=== PATIENT | male | born 1950 | race African-American/Black ===

== ENCOUNTER → 2017-08-27 | Outpatient (CLI) | payer MEDICARE, OTHER ==
--- NOTE | 2017-08-27 18:05 | PE ---
EXAMINATION TYPE: PET CT fusion skull to thigh DATE OF EXAM: 08/27/2017 CLINICAL HISTORY: Lung cancer initial staging study after biopsy August 23. TECHNIQUE: Following the intravenous administration of 15.25 mCi of F-18 FDG, whole body images are performed from the skull base to the midthigh. Images are reviewed on the computer in the coronal, axial, and sagittal planes. Reconstructed rotating images are created on independent workstation and reviewed on the computer. A non-contrast CT is performed in conjunction with the PET scan. [facility] ed PET/CT neck imaging is performed. COMPARISON: CT chest August 23, 2017. Initial study NDINGS: SKULL BASE AND NECK: No suspicious hypermetabolic uptake is seen. CHES MEDIASTINUM, AND HILAR GION: There is redemonstration of posterior left upper lobe mass abutt ing mediastinum and pleura with suspected invasion into chest wall posterior aspect left upper lobe o n axial image 75 measuring 4.9 x 4.8 cm. Craniocaudal dimension is roughly 6.0 cm. There is encroachm ent on the left-sided neural foramina at this level. Max SUV is 11.04. There is nonspecific but suspicious slightly hypermetabolic 1.0 x 1.0 cm left supraclavicular lymph n ode axial image 60 with max SUV of 2.07. There is background of advanced emphysematous change particularly in the upper lobes. Spiculated scar like opacity right upper lobe measuring 1.4 x 0.8 cm axial image 93 does not show suspicious hypermet abolic uptake. There are large calcified right hilar lymph nodes. There is linear and nodular scarrin g in the left lung base without hypermetabolic uptake. ABDOMEN AND LVIS: No suspicious hypermetabolic uptake is identified. No adrenal masses are seen. O OUS STRUCTURES: No suspicious hypermetabolic uptake is present. OTHER CT: Patient has very little abdominal fat making evaluation of abdominal structures suboptim al. There is suspected coronary stent in the RCA near axial image 133. There is moderate atherosclerotic change of aorta extending into iliac branch vessels. IMPRESSION: Large left upper lung medial mass or neoplasm with nonspecific but suspicious left sup raclavicular lymph node. No PET CT evidence for metastatic disease. TNM STAGING T3,N0 vs N2, M0 AJCC STAGING STAGE IIIB
== END | disposition home or self-care (01) ==
LOC: RADPETMAIN 11:10
PROVIDERS: ATTEND Internal Medicine Hematology & Oncology
DX: C34.12 Malignant neoplasm of upper lobe, left bronchus or lung (principal)
CPT/HCPCS: 78815; A9552

== ENCOUNTER 2017-11-07 21:22 | Inpatient (IN) | payer MEDICARE, OTHER ==
[2017-11-07] MEDS ORDERED: ONDANSETRON 4 MG/2 ML VIAL IVP STA (22:00)
[2017-11-07] MEDS ORDERED: ASPIRIN 81 MG PO STA (22:00)
[2017-11-07] MEDS ORDERED: SODIUM CHLORIDE 0.9% 1,000 ML IV STA (22:00)
[2017-11-07] MEDS ORDERED: MORPHINE SULFATE 4MG/4ML SYRG IV STA (22:00)
[2017-11-07] MEDS ORDERED: NITROGLYCERIN OINT 1 INCH/GM PACKET TOPICAL STA (22:00)
--- NOTE | 2017-11-07 22:05 | ED ---
Chest Pain HPI - General Chief Complaint: Chest Pain Stated Complaint: chest pain Time Seen by Provider: 11/07/17 21:49 Source: patient Mode of arrival: EMS Limitations: no limitations - History of Present Illness Initial Comments: This 67-year-old Afro[place] male presents with a complaint of some left- sided chest pain which radiates to his left shoulder. He states that he is had it for approximately one month or more. He has occasional shortness of breath. He states that it is somewhat better if he takes a deep breath or coughs. It is a persistent type of pain described as a pressure. He relates that he was in the hospital recently and was diagnosed with throat cancer. He seems very confused regarding his conditions. Old records relate that he was diagnosed with squamous cell stage III lung cancer. He was hospitalized in August [address] Millan from oncology as well as Dr. Vail from pulmonology. He has not followed up with these doctors or his primary care physician. He states that he has not had an appetite and he would like medication to help him with his appetite. He has lost 30 pounds over an unknown time. He states that he is barely ate anything over the past 20 days. He denies any other complaints or modifying factors. There is no leg pain or swelling. He does have a history of cardiac disease with previous myocardial infarction. Once again, history is limited as the patient does not know details of his conditions. - Related Data Previous Rx's Medication Instructions Recorded Aspirin 81 mg PO DAILY #30 chew 07/10/17 Lisinopril [Zestril] 20 mg PO DAILY #30 tab 07/10/17 Lovastatin [Mevacor] 40 mg PO HS #30 tab 07/10/17 Metoprolol Tartrate [Lopressor] 25 mg PO BID #60 tab 07/10/17 Nitroglycerin Sl Tabs [Nitrostat] 0.4 mg SUBLINGUAL Q5M PRN #10 tab 07/10/17 Albuterol Inhaler [Ventolin Hfa 1 - 2 puff INHALATION Q6HR PRN 30 08/25/17 Inhaler] Days #1 inhaler HYDROcodone/APAP 5-325MG [[place] 1 each PO Q4HR PRN #25 tab 08/25/17 5-325] Ipratropium-Albuterol Nebulize 3 ml INHALATION QID 30 Days #5 box 08/25/17 [Duoneb 0.5 mg-3 mg/3 ml Soln] Allergies Allergy/AdvReac Type Severity Reaction Status Date / Time No Known Allergies Allergy Verified 11/07/17 21:50 Review of Systems ROS Statement: Those systems with pertinent positive or pertinent negative responses have been documented in the HPI. ROS Other: All systems not noted in ROS Statement are negative. Past Medical History Past Medical History: Coronary Artery Disease (CAD), Chest Pain / Angina, COPD, Hypertension, Myocardial Infarction ([place]), Pneumonia Additional Past Medical History / Comment(s): L lung pneumothorax with surgery and chest tube-pt states his lung collapsed and was lying on his heart, serology Hep C reactive result-pt states he does not have hepatitis. Last Myocardial Infarction Date:: 02/04/2016 History of Any Multi-Drug Resistant Organisms: None Reported Past Surgical History: Heart Catheterization With Stent Additional Past Surgical History / Comment(s): PCI with 2 stents to RCA January 2016, L lung surgery d/t pneumothorax and then chest tube. Past Anesthesia/Blood Transfusion Reactions: No Reported Reaction Date of Last Stent Placement:: 01/2016 Past Psychological History: No Psychological Hx Reported Smoking Status: Current every day smoker Past Alcohol Use History: None Reported Past Drug Use History: None Reported - Past Family History Mother Family Medical History: Myocardial Infarction ([place]) Additional Family Medical History / Comment(s): Mother with heart attack and high blood pressure. She of a [place]/CVA at the age of 53yrs. Father History Unknown: Yes Additional Family Medical History / Comment(s): Father as a young man during a robbery. Sister(s) Additional Family Medical History / Comment(s): One sister of Breast Cancer. One sister of Massive heart attack General Exam - General Exam Comments Initial Comments: GENERAL: The patient is severely malnourished and well hydrated. VITAL SIGNS: Heart rate, blood pressure, respiratory rate reviewed as recorded in nurse's notes. EYES: Pupils are round and reactive. Extraocular movements are intact. No conjunctival / lid redness or swelling. ENT: No external evidence of injury, swelling, or ecchymosis. Airway is patent. Throat is clear. NECK: Nontender. No swelling or evidence of injury. No subcutaneous emphysema. Trachea is midline. No thyroid mass. HEART: Regular rate and rhythm. Good peripheral pulses. LUNGS/CHEST: Breath sounds clear and equal bilaterally. No rales, rhonchi, or wheezes. No ecchymosis, subcutaneous emphysema, or tenderness. ABDOMEN: Abdomen soft without tenderness. No palpable masses or organomegaly. No peritoneal signs. No abdominal wall swelling or ecchymosis. EXTREMITIES: No extremity tenderness. Normal muscle tone and function. No thoracolumbar tenderness. NEUROLOGIC: Sensation is grossly intact. Cranial nerve exam reveals face is symmetrical, tongue is midline, speech is clear. SKIN: No abrasions or ecchymosis is noted. No induration or masses noted. PSYCHIATRIC: Alert and oriented. Appropriate behavior and judgment. Limitations: no limitations Course Vital Signs 11/07/17 11/07/17 11/07/17 21:35 21:49 22:40 Temperature 97.1 F L Pulse Rate 113 H 98 Respiratory 20 22 20 Rate Blood Pressure 141/96 118/76 O2 Sat by Pulse 98 99 Oximetry 11/07/17 11/08/17 11/08/17 23:00 00:15 00:59 Temperature Pulse Rate 84 78 84 Respiratory 18 18 18 Rate Blood Pressure 111/68 107/68 101/67 O2 Sat by Pulse 99 100 95 Oximetry [facility] The patient was seen and examined. All diagnostics were reviewed. His EKG shows a sinus tachycardia at a rate of 101. There is nonspecific ST-T wave changes noted diffusely. There is no ST elevation. There is some left ventricular hypertrophy. The agents MS intervals 186, QRS duration is 80, and the QTc interval is 378. Old records were reviewed. He does receive some IV fluids as well as some morphine and Toradol. Aspirin and Nitropaste also are ordered. He is feeling remarkably improved on recheck. The computed tomography scan of the thorax does come back showing a significant invasive 10 cm tumor in the thoracic region which is significantly worsened since last computed tomography scan on 08/23/2017. There is no evidence of pulmonary embolism. Please see report for details. The laboratories reviewed and does show some hypomagnesemia and hypokalemia. The magnesium and potassium are placed. It is felt as though the patient does have significant intractable pain. He also has a 30 pound weight loss. He is having some dyspnea. He has had difficulty following up with the specialist on outpatient basis. Is felt as though he benefit from admission to the hospital for further treatment. Case is discussed with Dr. Simpson and he is agreeable to admission. Patient is agreeable to admission as well. Disposition Clinical Impression: Chest pain, Dyspnea, Lung cancer, Lung mass, Intractable pain, Hypomagnesemia, Hypokalemia Disposition: ADMITTED IP TO THIS [facility] Condition: Fair Time of Disposition: 01:37 Decision Date: 11/08/17 Decision Time: 01:37
[2017-11-07] MEDS ORDERED: RX INFO: IV CONTRAST WAS GIVEN 1 EACH MISC MISCELLANE PRN (22:06)
[2017-11-07 22:23] LABS: Basophils % (A) 0 %; Eosinophils # (A) 0.1 k/uL (0-0.7); Eosinophils % (A) 1 %; HCT 39.6 % (39.0-53.0); HGB 13.2 gm/dL (13.0-17.5); Lymphocytes # (A) 2.4 k/uL (1.0-4.8); Lymphocytes % (A) 16 %; MCH 31.2 pg (25.0-35.0); MCHC 33.4 g/dL (31.0-37.0); MCV 93.5 fL (80.0-100.0); Mean Platelet Volume 7.3; Monocytes # (A) 0.6 k/uL (0-1.0); Monocytes % (A) 4 %; Neutrophils # (A) 11.4 k/uL (1.3-7.7); Neutrophils % (A) 78 %; Platelet Count 358 k/uL (150-450); RBC 4.23 m/uL (4.30-5.90); RDW 13.5 % (11.5-15.5); WBC 14.7 k/uL (3.8-10.6)
[2017-11-07 22:41] LABS: ALT 24 U/L (21-72); AST 38 U/L (17-59); Albumin 2.8 g/dL (3.5-5.0); Alkaline Phosphatase 109 U/L (38-126); Anion Gap 8 mmol/L; Blood Urea Nitrogen 14 mg/dL (9-20); Calcium 12.5 mg/dL (8.4-10.2); Carbon Dioxide 32 mmol/L (22-30); Chloride 95 mmol/L (98-107); Glucose 115 mg/dL (74-99); Magnesium 1.5 mg/dL (1.6-2.3); Potassium 3.2 mmol/L (3.5-5.1); Sodium 135 mmol/L (137-145); Total Bilirubin 0.5 mg/dL (0.2-1.3); Total Protein 7.2 g/dL (6.3-8.2)
[2017-11-07 22:46] LABS: Creatine Kinase 24 U/L (55-170)
[2017-11-07 22:53] LABS: D-Dimer 1.02 mg/L FEU (<0.60); INR 1.1 (<1.2); Prothrombin Time 10.4 sec (9.0-12.0)
[2017-11-07 22:59] LABS: Creatine Kinase MB 0.3 ng/mL (0.0-2.4); Troponin I <0.012 ng/mL (0.000-0.034)
[2017-11-07 23:05] LABS: Partial Thromboplastin Time 21.4 sec (22.0-30.0)
--- NOTE | 2017-11-07 23:14 | CT ---
EXAMINATION TYPE: CT angio chest DATE OF EXAM: 11/07/2017 11:07 PM COMPARISON: NONE HISTORY: Chest pain and SOB. CT DLP: 143.3 mGycm Automated exposure control for dose reduction was used. CONTRAST: CTA scan of the thorax is performed with IV Contrast, patient injected with 70ml mL of Isovue 370, pu lmonary embolism protocol. There are 3-D post processed images.. 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 There is a 10 cm destructive mass at the right lung apex stringing machine tender iorly. There is extensive destruction of upper thoracic vertebra on the left side. Mass extends poste riorly to the subcutaneous tissues. Thoracic aorta is intact. I see no filling defects in the pulmonary arteries. Heart size is normal. T here is no pericardial effusion. There is no pleural effusion. IMPRESSION: NO EVIDENCE OF PULMONARY EMBOLISM. DIFFUSE PULMONARY EMPHYSEMA. LARGE LEFT UPPER LOBE MASS CONSISTENT WITH MALIGNANCY THAT IS SIGNIFICANTLY INCREASED IN SIZE COMPARE D TO 08/23/2017.
[2017-11-08] MEDS ORDERED: POTASSIUM CHLORIDE ER 20 MEQ TAB.ER PO STA (01:07)
[2017-11-08] MEDS ORDERED: NALOXONE 0.4 MG/ML 1 ML VIAL IV PRN (01:38)
[2017-11-08] MEDS ORDERED: ONDANSETRON 4 MG/2 ML VIAL IVP PRN (01:38)
[2017-11-08] MEDS ORDERED: ACETAMINOPHEN TAB 325 MG TAB PO PRN (01:38)
[2017-11-08] MEDS: MAGNESIUM SULFATE-D5W PMX 1 GM in DEXTROSE/WATER 1 100ML.BAG IVPB SCH ×2 (01:59→04:22)
--- NOTE | 2017-11-08 03:24 | P.HPIM ---
History of Present Illness H&P Date: 11/08/17 Chief Complaint: Chest pain The patient is a 67-year-old -[place] male that presents to the ER by EMS with some left-sided chest pain which radiates to his left shoulder. The patient has had this for approximately 1 month with some associated occasional shortness of breath. Persistent type of pain described as pressure. Patient reported that he was diagnosed with throat cancer to the ER physician and seemed very confused about his medical conditions. The patient reports his pain is the exact same as his last presentation earlier in August where he had a full workup and was diagnosed with with a left upper lobe squamous cell carcinoma stage III with bony invasion of T3 vertebra and left second third and fourth rib. Per records the patient was supposed to follow-up with radiation oncology in a week as well as follow-up with pulmonary and oncology input was apparently lost to follow-up secondary to not having a right to his appointments. The patient reports that he lives with his daughter and partner. The patient reports ongoing poor appetite and reports that he has not taken any pain medication is being discharged from the hospital, the patient reports significant weight loss, review of records indicates approximately 3 kg weight loss since his last hospitalization. In the ED the patient had a CT of his chest was negative for PE but did show a 10 cm left upper lobe mass consistent with malignancy significantly increased in size from previous study 08/23/17. Abnormal labs on admission included a leukocytosis of 14.7, serum potassium of 3.2 magnesium of 1.5 and hypercalcemia 12.5. Past Medical History Past Medical History: Coronary Artery Disease (CAD), Chest Pain / Angina, COPD, Hypertension, Myocardial Infarction ([place]), Pneumonia Additional Past Medical History / Comment(s): L lung pneumothorax with surgery and chest tube-pt states his lung collapsed and was lying on his heart, serology Hep C reactive result-pt states he does not have hepatitis. Last Myocardial Infarction Date:: 02/04/2016 History of Any Multi-Drug Resistant Organisms: None Reported Past Surgical History: Heart Catheterization With Stent Additional Past Surgical History / Comment(s): PCI with 2 stents to RCA January 2016, L lung surgery d/t pneumothorax and then chest tube. Past Anesthesia/Blood Transfusion Reactions: No Reported Reaction Date of Last Stent Placement:: 01/2016 Past Psychological History: No Psychological Hx Reported Smoking Status: Current every day smoker Past Alcohol Use History: None Reported Past Drug Use History: None Reported - Past Family History Mother Family Medical History: Myocardial Infarction ([place]) Additional Family Medical History / Comment(s): Mother with heart attack and high blood pressure. She of a [place]/CVA at the age of 53yrs. Father History Unknown: Yes Additional Family Medical History / Comment(s): Father as a young man during a robbery. Sister(s) Additional Family Medical History / Comment(s): One sister of Breast Cancer. One sister of Massive heart attack Medications and Allergies Home Medications Medication Instructions Recorded Confirmed Type Aspirin 81 mg PO DAILY #30 chew 07/10/17 08/23/17 Rx Lisinopril [Zestril] 20 mg PO DAILY #30 tab 07/10/17 08/23/17 Rx Lovastatin [Mevacor] 40 mg PO HS #30 tab 07/10/17 08/23/17 Rx Metoprolol Tartrate [Lopressor] 25 mg PO BID #60 tab 07/10/17 08/23/17 Rx Nitroglycerin Sl Tabs [Nitrostat] 0.4 mg SUBLINGUAL Q5M PRN #10 tab 07/10/17 Rx Albuterol Inhaler [Ventolin Hfa 1 - 2 puff INHALATION Q6HR PRN 30 08/25/17 Rx Inhaler] Days #1 inhaler HYDROcodone/APAP 5-325MG [[place] 1 each PO Q4HR PRN #25 tab 08/25/17 Rx 5-325] Ipratropium-Albuterol Nebulize 3 ml INHALATION QID 30 Days #5 box 08/25/17 Rx [Duoneb 0.5 mg-3 mg/3 ml Soln] Allergies Allergy/AdvReac Type Severity Reaction Status Date / Time No Known Allergies Allergy Verified 11/07/17 21:50 Physical Exam Vitals: Vital Signs Temp Pulse Resp BP Pulse Ox 11/08/17 02:00 72 16 93/61 100 11/08/17 00:59 84 18 101/67 95 11/08/17 00:15 78 18 107/68 100 11/07/17 23:00 84 18 111/68 99 11/07/17 22:40 98 20 118/76 99 11/07/17 21:49 22 11/07/17 21:35 97.1 F L 113 H 20 141/96 98 Intake and Output 11/07/17 11/07/17 11/08/17 14:59 22:59 06:59 Other: Weight 44.452 kg Constitutional: No acute distress, cachectic emaciated, bilateral temporal wasting Eyes: Anicteric sclerae, moist conjunctiva, no lid-lag, PERRLA ENMT: NC/AT,Oropharynx clear, no erythema, exudates Neck:Supple, FROM, no masses, or JVD, No carotid bruits; No thyromegaly Lungs: Clear to auscultation, Clear to percussion, Normal respiratory effort, no accessory muscle use Cardiovascular: Heart regular in rate and rhythm, No murmurs, gallops, or rubs no peripheral edema Abdominal: Soft Nontender, nom distended, no guarding, no rebound or rigidity, Normoactive bowel sounds No hepatomegaly, No splenomegaly, No palpable mass No abdominal wall hernia noted Skin: Normal temperature, tone, texture, turgor, No induration No subcutaneous nodules, No rash, lesions, No ulcers Extremities:No digital cyanosis No clubbing, Pedal pulses intact and symmetrical Radial pulses intact and symmetrical Normal gait and station, No calf tenderness Psychiatric: Alert and oriented to person, place and time, Appropriate affect Intact judgement Neuro: Muscles Strength 5/5 in all 4 extremities, Sensation to light touch grossly present throughout, Cranial nerves II-XII grossly intact. No focal sensory deficits Results CBC & Chem 7: 11/07/17 19:50 11/07/17 19:50 Labs: Abnormal Lab Results - Last 24 Hours (Table) 11/07/17 11/07/17 11/07/17 Range/Units 19:50 19:50 19:50 WBC 14.7 H (3.8-10.6) k/uL RBC 4.23 L (4.30-5.90) m/uL Neutrophils # 11.4 H (1.3-7.7) k/uL APTT (22.0-30.0) sec D-Dimer (<0.60) mg/L FEU Sodium 135 L (137-145) mmol/L Potassium 3.2 L (3.5-5.1) mmol/L Chloride 95 L (98-107) mmol/L Carbon Dioxide 32 H (22-30) mmol/L Creatinine 0.57 L (0.66-1.25) mg/dL Glucose 115 H (74-99) mg/dL Calcium 12.5 H (8.4-10.2) mg/dL Magnesium 1.5 L (1.6-2.3) mg/dL Total Creatine Kinase 24 L (55-170) U/L Albumin 2.8 L (3.5-5.0) g/dL 11/07/17 Range/Units 19:50 WBC (3.8-10.6) k/uL RBC (4.30-5.90) m/uL Neutrophils # (1.3-7.7) k/uL APTT 21.4 L (22.0-30.0) sec D-Dimer 1.02 H (<0.60) mg/L FEU Sodium (137-145) mmol/L Potassium (3.5-5.1) mmol/L Chloride (98-107) mmol/L Carbon Dioxide (22-30) mmol/L Creatinine (0.66-1.25) mg/dL Glucose (74-99) mg/dL Calcium (8.4-10.2) mg/dL Magnesium (1.6-2.3) mg/dL Total Creatine Kinase (55-170) U/L Albumin (3.5-5.0) g/dL Assessment and Plan Assessment: Chronic medical conditions Essential hypertension COPD Coronary artery disease with stenting of the proximal right coronary artery (1) Squamous cell carcinoma of lung, stage III Current Visit: Yes Status: Acute Code(s): C34.90 - MALIGNANT NEOPLASM OF UNSP PART OF UNSP BRONCHUS OR LUNG SNOMED Code(s): 565959289 (2) Hypokalemia Current Visit: Yes Status: Acute Code(s): E87.6 - HYPOKALEMIA SNOMED Code( s): 86379561 (3) Hypomagnesemia Current Visit: Yes Status: Acute Code(s): E83.42 - HYPOMAGNESEMIA SNOMED Code(s): 452617841 (4) Intractable pain Current Visit: Yes Status: Acute Code(s): R52 - PAIN, UNSPECIFIED SNOMED Code(s): 89557212 (5) Cachexia Current Visit: No Status: Acute Code(s): R64 - CACHEXIA SNOMED Code(s): 481827393 (6) Dehydration Current Visit: Yes Status: Acute Code(s): E86.0 - DEHYDRATION SNOMED Code( s): 51915226 (7) Leukocytosis Current Visit: Yes Status: Acute Code(s): D72.829 - ELEVATED WHITE BLOOD CELL COUNT, UNSPECIFIED SNOMED Code(s): 414124230 Plan: The patient is placed on observation and anticipate a less than 2 midnight stay with atypical chest pain/shoulder likely related to his underlying malignancy left upper lobe squamous cell lung carcinoma with invasion of the T3 and left second third and fourth rib. Repeat CT today showing significant increase left upper lobe invasive tumor up to to 10 cm. Although the patient has a history of coronary artery disease with stenting I believe the patient's pain is more consistent with his malignancy his initial EKG and cardiac enzymes are negative for any acute ischemia. The patient's exam and labs are consistent with dehydration patient started on IV fluids and his electrolyte abnormalities hypokalemia and hypomagnesemia have been replaced and we'll recheck. Four the patient intractable pain we'll resume oral morphine with hydrocodone for breakthrough pain the patient was already given Toradol and morphine in the ER. We'll plan to consult social work to participate in the patient's ongoing plan of care. Pulmonary and oncology of been consulted from the ER. We will continue to follow the patient's clinical course
[2017-11-08] MEDS: Acetaminophen-Codeine 300-30mg TAB PO PRN (04:22)
[2017-11-08] MEDS: IPRATROPIUM-ALBUTEROL 3 ML NEB INHALATION SCH ×4 (08:53→21:00)
[2017-11-08 09:20] LABS: ALT 27 U/L (21-72); AST 33 U/L (17-59); Albumin 2.4 g/dL (3.5-5.0); Alkaline Phosphatase 90 U/L (38-126); Anion Gap 5 mmol/L; Blood Urea Nitrogen 13 mg/dL (9-20); Calcium 12.4 mg/dL (8.4-10.2); Carbon Dioxide 32 mmol/L (22-30); Chloride 101 mmol/L (98-107); Glucose 93 mg/dL (74-99); Sodium 138 mmol/L (137-145); Total Bilirubin 0.5 mg/dL (0.2-1.3); Total Protein 6.6 g/dL (6.3-8.2)
[2017-11-08 09:31] LABS: Creatine Kinase <20 U/L (55-170)
[2017-11-08 09:40] LABS: Creatine Kinase MB 0.3 ng/mL (0.0-2.4); Troponin I <0.012 ng/mL (0.000-0.034)
[2017-11-08 09:45] LABS: Basophils % (A) 0 %; Eosinophils # (A) 0.1 k/uL (0-0.7); Eosinophils % (A) 1 %; HCT 36.7 % (39.0-53.0); HGB 12.1 gm/dL (13.0-17.5); Lymphocytes # (A) 1.5 k/uL (1.0-4.8); Lymphocytes % (A) 13 %; MCH 31.5 pg (25.0-35.0); MCHC 33.1 g/dL (31.0-37.0); MCV 95.3 fL (80.0-100.0); Mean Platelet Volume 8.1; Monocytes # (A) 0.5 k/uL (0-1.0); Monocytes % (A) 4 %; Neutrophils # (A) 9.4 k/uL (1.3-7.7); Neutrophils % (A) 79 %; Platelet Count 228 k/uL (150-450); RBC 3.85 m/uL (4.30-5.90); RDW 13.6 % (11.5-15.5); WBC 11.8 k/uL (3.8-10.6)
--- NOTE | 2017-11-08 11:19 | P.PN ---
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 Code status discussion with family pending, to address goals of therapy and code status in light of invasive cancer which looks of advanced stage await further oncology recs. severe protein calorie malnutrition , dietitian consult and encourage po intake and provide protein supplements
--- NOTE | 2017-11-08 11:44 | P.CNPUL ---
History of Present Illness Consult date: 11/08/17 Reason for consult: chest pain, lung mass, abnormal CXR/CT, other Chief complaint: Chest and shoulder pain History of present illness: Consult dated 11/08/2017 This is a 67-year-old white male very cachectic and weak. Comes in complaining of left-sided chest and shoulder pain. Recently had a diagnosis of non-small cell lung cancer made. He had a biopsy done in August. Subsequent to that he had chest x-rays CAT scans and PET scans which showed metastatic disease. At that time, the patient refused all therapy. He refuses chemo and radiation. At that time he probably stage IIIa but now with metastases to the spine into the ribs, he is stage IV disease. Again the patient does not wish to have any therapy at this time. He scatted very poor appetite and significant weight loss. Lost about 50 pounds or so. I was able to talk to him about CODE STATUS. We talked to his daughter Dyana in [place]. The patient has made himself a no code. I think hospice consultation would be very appropriate. Initially, the nurse talk to him and initially he was a full code. I thought that was very unreasonable given his advanced disease. Anyway, the reason why he was admitted primarily was for pain. Review of Systems A 12 point review of system is positive for severe chest and shoulder pain on the left side as well as profound anorexia/cachexia syndrome with profound malnutrition and weight loss. Past Medical History Past Medical History: Coronary Artery Disease (CAD), Chest Pain / Angina, COPD, Hypertension, Myocardial Infarction ([place]), Pneumonia Additional Past Medical History / Comment(s): L lung pneumothorax with surgery and chest tube-pt states his lung collapsed and was lying on his heart, serology Hep C reactive result-pt states he does not have hepatitis. Last Myocardial Infarction Date:: 02/04/2016 History of Any Multi-Drug Resistant Organisms: None Reported Past Surgical History: Heart Catheterization With Stent Additional Past Surgical History / Comment(s): PCI with 2 stents to RCA January 2016, L lung surgery d/t pneumothorax and then chest tube. Past Anesthesia/Blood Transfusion Reactions: No Reported Reaction Date of Last Stent Placement:: 01/2016 Past Psychological History: No Psychological Hx Reported Smoking Status: Current every day smoker Past Alcohol Use History: None Reported Past Drug Use History: None Reported - Past Family History Mother Family Medical History: Myocardial Infarction ([place]) Additional Family Medical History / Comment(s): Mother with heart attack and high blood pressure. She of a [place]/CVA at the age of 53yrs. Father History Unknown: Yes Additional Family Medical History / Comment(s): Father as a young man during a robbery. Sister(s) Additional Family Medical History / Comment(s): One sister of Breast Cancer. One sister of Massive heart attack Medications and Allergies Home Medications Medication Instructions Recorded Confirmed Type Aspirin 81 mg PO DAILY #30 chew 07/10/17 11/08/17 Rx Nitroglycerin Sl Tabs [Nitrostat] 0.4 mg SUBLINGUAL Q5M PRN #10 tab 07/10/1705/18 Rx Albuterol Inhaler [Ventolin Hfa 1 - 2 puff INHALATION Q6HR PRN 30 08/25/1711/08 Rx Inhaler] Days #1 inhaler Atenolol [Tenormin] 25 mg PO DAILY 11/08/17 11/08/17 History Cholecalciferol [Vitamin D3] 1,000 unit PO DAILY 11/08/17 11/08/17 History Cyclobenzaprine [Flexeril] 10 mg PO HS 11/08/17 11/08/17 History DULoxetine HCL [Cymbalta] 60 mg PO DAILY 11/08/17 11/08/17 History Gabapentin 800 mg PO TID 11/08/17 11/08/17 History Glimepiride [Amaryl] 4 mg PO AC-BRKFST 11/08/17 11/08/17 History HYDROcodone/APAP 7.5-325MG [[place] 1 tab PO TID PRN 11/08/17 11/08/17 History 7.5-325] Insulin Glargine [Lantus] 120 unit SQ HS 11/08/17 11/08/17 History Levothyroxine Sodium [Synthroid] 50 mcg PO DAILY 11/08/17 11/08/17 History Lisinopril [Zestril] 5 mg PO DAILY 11/08/17 11/08/17 History Multivitamins, Thera [Multivitamin 1 tab PO DAILY 11/08/17 11/08/17 History (formulary)] Omeprazole 20 mg PO W/SUPPER 11/08/17 11/08/17 History Pravastatin Sodium [Pravachol] 20 mg PO DAILY 11/08/17 11/08/17 History Rivaroxaban [Xarelto] 20 mg PO W/SUPPER 11/08/17 11/08/17 History Vitamin C/Biotin [Hair, Skin and 1 tab PO DAILY 11/08/17 11/08/17 History Nails] Warfarin [Coumadin] 5 mg PO MOWEFR 11/08/17 11/08/17 History Warfarin [Coumadin] 5 mg PO SUTUTHSA 11/08/17 11/08/17 History amLODIPine [Norvasc] 5 mg PO DAILY 11/08/17 11/08/17 History metFORMIN HCL [Glucophage] 850 mg PO TID 11/08/17 11/08/17 History sitaGLIPtin [Januvia] 100 mg PO DAILY 11/08/17 11/08/17 History Allergies Allergy/AdvReac Type Severity Reaction Status Date / Time No Known Allergies Allergy Verified 11/07/17 21:50 Physical Exam Osteopathic Statement: *. No significant issues noted on an osteopathic structural exam other than those noted in the History and Physical/Consult. Vitals: Vital Signs Temp Pulse Resp BP Pulse Ox 11/08/17 10:14 96.8 F L 11/08/17 10:02 75 17 121/71 100 11/08/17 09:08 79 11/08/17 08:58 77 11/08/17 08:57 77 17 101/59 99 11/08/17 07:14 84 16 104/60 94 L 11/08/17 06:21 70 16 107/60 99 11/08/17 05:09 73 18 96/59 100 11/08/17 04:00 74 18 101/63 100 11/08/17 03:00 72 18 106/67 100 11/08/17 02:00 72 16 93/61 100 11/08/17 00:59 84 18 101/67 95 11/08/17 00:15 78 18 107/68 100 11/07/17 23:00 84 18 111/68 99 11/07/17 22:40 98 20 118/76 99 11/07/17 21:49 22 11/07/17 21:35 97.1 F L 113 H 20 141/96 98 Intake and Output 11/07/17 11/08/17 11/08/17 22:59 06:59 14:59 Other: Weight 44.452 kg No acute distress, oriented 3. Appears very weak and very cachectic as well as being very thin. HEENT examination is grossly unremarkable. Mucous membranes are moist. No oral lesions. Neck supple. Full range of motion. No adenopathy thyromegaly or neck vein distention. Cardiovascular examination reveals regular rhythm rate. S1-S2 normal. No S3 or S4. No discernible murmur noted. Lungs reveal a few scattered rhonchi. Breath sounds are equal bilaterally. No wheezes or crackles noted. Abdomen soft bowel sounds are heard. No masses or tenderness. Extremities are intact. No cyanosis clubbing or edema. Skin is without rash or lesion. Neurologic examination is brief but nonfocal. Results - Laboratory Findings CBC and BMP: 11/08/17 08:20 11/08/17 08:20 PT/INR, D-dimer PT 10.4 sec (9.0-12.0) 11/07/17 19:50 INR 1.1 (<1.2) 11/07/17 19:50 D-Dimer 1.02 mg/L FEU (<0.60) H 11/07/17 19:50 Abnormal lab findings: Abnormal Labs 11/07/17 11/07/17 11/07/17 19:50 19:50 19:50 WBC 14.7 H RBC 4.23 L Hgb Hct Neutrophils # 11.4 H APTT D-Dimer Sodium 135 L Potassium 3.2 L Chloride 95 L Carbon Dioxide 32 H Creatinine 0.57 L Glucose 115 H Calcium 12.5 H Magnesium 1.5 L Total Creatine Kinase 24 L Albumin 2.8 L 11/07/17 11/08/17 11/08/17 19:50 08:20 08:20 WBC 11.8 H RBC 3.85 L Hgb 12.1 L Hct 36.7 L Neutrophils # 9.4 H APTT 21.4 L D-Dimer 1.02 H Sodium Potassium Chloride Carbon Dioxide Creatinine Glucose Calcium Magnesium Total Creatine Kinase <20 L Albumin 11/08/17 08:20 WBC RBC Hgb Hct Neutrophils # APTT D-Dimer Sodium Potassium Chloride Carbon Dioxide 32 H Creatinine 0.57 L Glucose Calcium 12.4 H Magnesium Total Creatine Kinase Albumin 2.4 L - Diagnostic Findings Chest x-ray: image reviewed (Chest x-ray labs and medications are reviewed. PET scan from prior admission as well as computed tomography scan are reviewed. Labs are reviewed. 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 Suspected COPD Acute on chronic pain History of hepatitis C CAD Angina. Previous myocardial infarction History of stent placement History of pneumonia Plan: Plan dated 11/08/2017 I spoke with the patient's a daughter who lives in [place]. Her name is Dayna. She agrees that her father should have a hospice consultation. He definitely should be a no code, no intubation no mechanical ventilation no heroic measures. I think we should focus mostly on palliative care and comfort measures such as pain control. Also, maybe something to improve his appetite a bit. Additional recommendations and suggestions are forthcoming. The patient has been adamant about refusing any treatment including chemo and/or radiation therapy. His performance level support right now, he would not be a candidate for either of those treatments. Additional recommendations and suggestions are forthcoming. Time with Patient: Greater than 30
[2017-11-08 11:52] LABS: Magnesium 2.2 mg/dL (1.6-2.3)
[2017-11-08] MEDS ORDERED: MAGNESIUM SULFATE-D5W PMX 1 GM in DEXTROSE/WATER 1 100ML.BAG IVPB ONE (12:00)
[2017-11-08] MEDS: ENOXAPARIN 40 MG/0.4 ML SYRINGE SQ SCH (12:43)
[2017-11-08] MEDS: LISINOPRIL 20 MG TAB PO SCH (12:43)
[2017-11-08] MEDS: PANTOPRAZOLE 40 MG/10 ML VIAL IV SCH (12:43)
[2017-11-08] MEDS: METOPROLOL TARTRATE 25 MG TAB PO SCH ×2 (12:44→20:21)
[2017-11-08] MEDS: SODIUM CHLORIDE 0.9% 1,000 ML IV SCH ×2 (12:47→20:23)
[2017-11-08] MEDS: LEVOTHYROXINE 50 MCG TAB PO SCH (12:47)
[2017-11-08 12:55] LABS: Glucose,Whole Blood 92 mg/dL (75-99)
[2017-11-08] MEDS: INSULIN ASPART 100 UNIT/ML 1 ML 10 ML VIAL SQ SCH ×3 (12:57→20:22)
[2017-11-08 15:15] LABS: Creatine Kinase MB 0.3 ng/mL (0.0-2.4); Troponin I 0.012 ng/mL (0.000-0.034)
[2017-11-08 15:20] VITALS: BMI 13.6
[2017-11-08] MEDS: ASPIRIN 81 MG PO SCH (16:20)
[2017-11-08 16:33] LABS: Glucose,Whole Blood 173 mg/dL (75-99)
[2017-11-08] MEDS ORDERED: RX INFO: IV CONTRAST WAS GIVEN 1 EACH MISC MISCELLANE PRN (19:16)
[2017-11-08] MEDS ORDERED: IOPAMIDOL-300 CONTRAST 30 ML VIAL (ORAL USE) PO PRN (19:16)
--- NOTE | 2017-11-08 19:22 | P.CONS ---
History of Present Illness - Reason for Consult Consult date: 11/08/17 Squamous Cell Lung cancer Requesting physician: Eron Brady - Chief Complaint Pain - History of Present Illness Mr. Carpenter is a pleasant male , initially seen in consult at [facility] on 08/23/17. He had presented with c/o left chest pain, this has been progressive over the last 1-2 months, sharp, radiating to the back. associated symptoms including limited ROM and some weakness in the left arm, pain when taking deep breath, touching the ribs and moving around a lot. He is a smoker and had not noticed a significant change in cough, no changes in bowel or bladder habits, he lives with his daughter. CT scan of the brain was negative. He had a CT-guided needle biopsy that came back positive for squamous cell carcinoma. His pain in the meantime improved with pain medications and he was discharged. He had a PET scan as an outpatient on 08/27/17. This showed the left upper lobe mass to be 4.954.19676 cm with max SUV of 11.04. No other areas of uptake were noted other than a 1 cm left supraclavicular node with SUV of 2.07 that was suspicious but not definitive. He was seen for his first office visit on 09/01/17. He has failed to follow-up since, he states he has not had transportation. He was seen in the emergency room holding room 15 today. He complains of fatigue , SOB, dizziness. He states his daughter Dyana generally assists him with his care, although she was unable to help with transportation for follow-up visits. Review of Systems A 14 point review of systems wsa assessed and completed and all negative except HPI Past Medical History Past Medical History: Coronary Artery Disease (CAD), Cancer, Chest Pain / Angina , COPD, Hypertension, Myocardial Infarction ([place]), Pneumonia Additional Past Medical History / Comment(s): 08/23/17 diagnosed with L lung mass /squamouse cell carcinoma with mets to T3 vertebral body and L side ribs/pt refusing chemo or radiation, L lung pneumothorax with surgery and chest tube-pt states his lung collapsed and was lying on his heart, 02/29/16 serology Hep C reactive result-pt states he does not have hepatitis, ischemic cardiomyopathy. Last Myocardial Infarction Date:: 02/04/2016 History of Any Multi-Drug Resistant Organisms: None Reported Past Surgical History: Heart Catheterization With Stent Additional Past Surgical History / Comment(s): 08/23/17 L lung core bx, PCI with 2 stents to RCA January 2016, L lung surgery d/t pneumothorax and then chest tube. Past Anesthesia/Blood Transfusion Reactions: No Reported Reaction Date of Last Stent Placement:: 01/2016 Smoking Status: Current every day smoker - Past Family History Mother Family Medical History: Myocardial Infarction ([place]) Additional Family Medical History / Comment(s): Mother with heart attack and high blood pressure. She of a [place]/CVA at the age of 53yrs. Father History Unknown: Yes Additional Family Medical History / Comment(s): Father as a young man during a robbery. Sister(s) Additional Family Medical History / Comment(s): One sister of Breast Cancer. One sister of Massive heart attack Medications and Allergies Home Medications Medication Instructions Recorded Confirmed Type Melatonin 5 - 10 mg PO HS 11/08/17 11/08/17 History Nitroglycerin Sl Tabs [Nitrostat] 0.4 mg SUBLINGUAL Q5M PRN 11/08/17 11/08/17 History Allergies Allergy/AdvReac Type Severity Reaction Status Date / Time No Known Allergies Allergy Verified 11/07/17 21:50 Physical Exam Vitals: Vital Signs Temp Pulse Pulse Resp BP BP Pulse Ox 11/08/17 16:56 76 11/08/17 16:40 80 11/08/17 16:00 84 16 11/08/17 14:46 98 F 84 16 138/76 99 11/08/17 12:06 72 11/08/17 11:57 70 100 11/08/17 11:46 98.4 F 74 18 130/78 100 11/08/17 10:14 96.8 F L 11/08/17 10:02 75 17 121/71 100 11/08/17 09:08 79 11/08/17 08:58 77 11/08/17 08:57 77 17 101/59 99 11/08/17 07:14 84 16 104/60 94 L 11/08/17 06:21 70 16 107/60 99 11/08/17 05:09 73 18 96/59 100 11/08/17 04:00 74 18 101/63 100 11/08/17 03:00 72 18 106/67 100 11/08/17 02:00 72 16 93/61 100 11/08/17 00:59 84 18 101/67 95 11/08/17 00:15 78 18 107/68 100 11/07/17 23:00 84 18 111/68 99 11/07/17 22:40 98 20 118/76 99 11/07/17 21:49 22 11/07/17 21:35 97.1 F L 113 H 20 141/96 98 Intake and Output 11/08/17 11/08/17 11/08/17 06:59 14:59 22:59 Output Total 100 100 Balance -100 -100 Output: Urine 100 100 Other: Weight 44.452 kg - Constitutional General appearance: cooperative, no acute distress, thin - EENT Eyes: edentulous, EOMI, poor dentition ENT: hard of hearing, NA/AT, normal oropharynx - Respiratory Respiratory: bilateral: diminished (Bilateral lobes) - Cardiovascular Rhythm: regular Heart sounds: normal: S1, S2 - Gastrointestinal General gastrointestinal: distended, soft, tenderness - Integumentary Integumentary: pale - Neurologic Neurologic: CNII-XII intact - Musculoskeletal Musculoskeletal: generalized weakness - Psychiatric Psychiatric: A&O x's 3, appropriate affect Results CBC & Chem 7: 11/08/17 08:20 11/08/17 08:20 Labs: Abnormal Lab Results - Last 24 Hours (Table) 11/07/17 11/07/17 11/07/17 Range/Units 19:50 19:50 19:50 WBC 14.7 H (3.8-10.6) k/uL RBC 4.23 L (4.30-5.90) m/uL Hgb (13.0-17.5) gm/dL Hct (39.0-53.0) % Neutrophils # 11.4 H (1.3-7.7) k/uL APTT (22.0-30.0) sec D-Dimer (<0.60) mg/L FEU Sodium 135 L (137-145) mmol/L Potassium 3.2 L (3.5-5.1) mmol/L Chloride 95 L (98-107) mmol/L Carbon Dioxide 32 H (22-30) mmol/L Creatinine 0.57 L (0.66-1.25) mg/dL Glucose 115 H (74-99) mg/dL POC Glucose (mg/dL) (75-99) mg/dL Calcium 12.5 H (8.4-10.2) mg/dL Magnesium 1.5 L (1.6-2.3) mg/dL Total Creatine Kinase 24 L (55-170) U/L Albumin 2.8 L (3.5-5.0) g/dL 11/07/17 11/08/17 11/08/17 Range/Units 19:50 08:20 08:20 WBC 11.8 H (3.8-10.6) k/uL RBC 3.85 L (4.30-5.90) m/uL Hgb 12.1 L (13.0-17.5) gm/dL Hct 36.7 L (39.0-53.0) % Neutrophils # 9.4 H (1.3-7.7) k/uL APTT 21.4 L (22.0-30.0) sec D-Dimer 1.02 H (<0.60) mg/L FEU Sodium (137-145) mmol/L Potassium (3.5-5.1) mmol/L Chloride (98-107) mmol/L Carbon Dioxide (22-30) mmol/L Creatinine (0.66-1.25) mg/dL Glucose (74-99) mg/dL POC Glucose (mg/dL) (75-99) mg/dL Calcium (8.4-10.2) mg/dL Magnesium (1.6-2.3) mg/dL Total Creatine Kinase <20 L (55-170) U/L Albumin (3.5-5.0) g/dL 11/08/17 11/08/17 11/08/17 Range/Units 08:20 14:38 16:31 WBC (3.8-10.6) k/uL RBC (4.30-5.90) m/uL Hgb (13.0-17.5) gm/dL Hct (39.0-53.0) % Neutrophils # (1.3-7.7) k/uL APTT (22.0-30.0) sec D-Dimer (<0.60) mg/L FEU Sodium (137-145) mmol/L Potassium (3.5-5.1) mmol/L Chloride (98-107) mmol/L Carbon Dioxide 32 H (22-30) mmol/L Creatinine 0.57 L (0.66-1.25) mg/dL Glucose (74-99) mg/dL POC Glucose (mg/dL) 173 H (75-99) mg/dL Calcium 12.4 H (8.4-10.2) mg/dL Magnesium (1.6-2.3) mg/dL Total Creatine Kinase 31 L (55-170) U/L Albumin 2.4 L (3.5-5.0) g/dL Assessment and Plan (1) Chest pain Current Visit: Yes Status: Acute Code(s): R07.9 - CHEST PAIN, UNSPECIFIED SNOMED Code(s): 03209858 (2) Dyspnea Current Visit: Yes Status: Acute Code(s): R06.00 - DYSPNEA, UNSPECIFIED SNOMED Code(s): 174161054 (3) Intractable pain Current Visit: Yes Status: Acute Code(s): R52 - PAIN, UNSPECIFIED SNOMED Code(s): 28719798 (4) Lung cancer Current Visit: Yes Status: Acute Code(s): C34.90 - MALIGNANT NEOPLASM OF UNSP PART OF UNSP BRONCHUS OR LUNG SNOMED Code(s): 109702470 (5) Lung mass Current Visit: Yes Status: Acute Code(s): R91.8 - OTHER NONSPECIFIC ABNORMAL FINDING OF LUNG FIELD SNOMED Code(s): 058938712 (6) Squamous cell carcinoma of lung, stage III Current Visit: Yes Status: Acute Code(s): C34.90 - MALIGNANT NEOPLASM OF UNSP PART OF UNSP BRONCHUS OR LUNG SNOMED Code(s): 729030181 (7) COPD (chronic obstructive pulmonary disease) Current Visit: No Status: Acute Code(s): J44.9 - CHRONIC OBSTRUCTIVE PULMONARY DISEASE, UNSPECIFIED SNOMED Code(s): 73456716 (8) Cachexia Current Visit: No Status: Acute Code(s): R64 - CACHEXIA SNOMED Code(s): 459947781 Plan: Assessment and Recs: 1. Squamous Cell Lung Cancer - Originally Diagnosed as locally advanced, although was not adherent with followup, now appears progressive with bony destruction - CT scans Abdomen and Pelvis restaging - COnsult Dr. Brenda Radiation Oncology - Social WOrk Consult to assist with transportation issues and home issues to allow better adherence to follow-up if treatment is recommended 2. Pain related to progressive malignancy: - Continue supportive care pain management.
[2017-11-08 19:28] LABS: Hemoglobin A1C 5.5 % (4.0-6.0)
[2017-11-08 20:18] LABS: Glucose,Whole Blood 119 mg/dL (75-99)
[2017-11-08] MEDS: ATORVASTATIN 10 MG TAB PO SCH (20:22)
[2017-11-08 20:52] LABS: Creatine Kinase 21 U/L (55-170)
[2017-11-08 21:06] LABS: Creatine Kinase MB <0.2 ng/mL (0.0-2.4); Troponin I <0.012 ng/mL (0.000-0.034)
[2017-11-08] MEDS: MORPHINE ORAL SOLN 10 MG/5 ML CUP PO PRN (22:00)
[2017-11-09] MEDS: MORPHINE ORAL SOLN 10 MG/5 ML CUP PO PRN ×3 (01:50→23:28)
[2017-11-09] MEDS: SODIUM CHLORIDE 0.9% 1,000 ML IV SCH ×3 (05:01→20:30)
[2017-11-09] MEDS: LEVOTHYROXINE 50 MCG TAB PO SCH (05:02)
[2017-11-09] MEDS: Acetaminophen-Codeine 300-30mg TAB PO PRN (05:09)
[2017-11-09 07:07] LABS: Glucose,Whole Blood 93 mg/dL (75-99)
[2017-11-09] MEDS: IPRATROPIUM-ALBUTEROL 3 ML NEB INHALATION SCH ×4 (07:58→20:05)
[2017-11-09 08:13] LABS: Basophils % (A) 0 %; Eosinophils # (A) 0.1 k/uL (0-0.7); Eosinophils % (A) 1 %; HGB 12.8 gm/dL (13.0-17.5); Lymphocytes # (A) 1.5 k/uL (1.0-4.8); Lymphocytes % (A) 14 %; MCH 31.8 pg (25.0-35.0); MCHC 33.6 g/dL (31.0-37.0); MCV 94.5 fL (80.0-100.0); Mean Platelet Volume 7.2; Monocytes # (A) 0.3 k/uL (0-1.0); Monocytes % (A) 3 %; Neutrophils # (A) 8.9 k/uL (1.3-7.7); Neutrophils % (A) 81 %; Platelet Count 302 k/uL (150-450); RBC 4.02 m/uL (4.30-5.90); RDW 13.5 % (11.5-15.5)
[2017-11-09 08:19] LABS: Anion Gap 6 mmol/L; Blood Urea Nitrogen 8 mg/dL (9-20); Calcium 12.2 mg/dL (8.4-10.2); Carbon Dioxide 30 mmol/L (22-30); Chloride 106 mmol/L (98-107); Glucose 86 mg/dL (74-99); Magnesium 1.5 mg/dL (1.6-2.3); Potassium 3.6 mmol/L (3.5-5.1); Sodium 142 mmol/L (137-145)
[2017-11-09] MEDS: LISINOPRIL 20 MG TAB PO SCH (08:59)
[2017-11-09] MEDS: METOPROLOL TARTRATE 25 MG TAB PO SCH ×3 (08:59→21:00)
[2017-11-09] MEDS: ASPIRIN 81 MG PO SCH (09:00)
[2017-11-09] MEDS: ENOXAPARIN 40 MG/0.4 ML SYRINGE SQ SCH (09:00)
[2017-11-09] MEDS: INSULIN ASPART 100 UNIT/ML 1 ML 10 ML VIAL SQ SCH ×4 (09:04→20:30)
[2017-11-09] MEDS ORDERED: MAGNESIUM SULFATE-D5W PMX 1 GM in DEXTROSE/WATER 1 100ML.BAG IVPB ONE (10:23)
[2017-11-09] MEDS: PANTOPRAZOLE 40 MG/10 ML VIAL IV SCH (11:43)
[2017-11-09 12:26] LABS: Glucose,Whole Blood 150 mg/dL (75-99)
--- NOTE | 2017-11-09 15:19 | P.PN ---
Subjective Progress Note Date: 11/09/17 Principal diagnosis: Stage IV non-small cell lung cancer, squamous cell type This is a 67-year-old white male very cachectic and weak. Comes in complaining of left-sided chest and shoulder pain. Recently had a diagnosis of non-small cell lung cancer made. He had a biopsy done in August. Subsequent to that he had chest x-rays CAT scans and PET scans which showed metastatic disease. At that time, the patient refused all therapy. He refuses chemo and radiation. At that time he probably stage IIIa but now with metastases to the spine into the ribs, he is stage IV disease. Again the patient does not wish to have any therapy at this time. He scatted very poor appetite and significant weight loss. Lost about 50 pounds or so. I was able to talk to him about CODE STATUS. We talked to his daughter Dyana in [place]. The patient has made himself a no code. I think hospice consultation would be very appropriate. Initially, the nurse talk to him and initially he was a full code. I thought that was very unreasonable given his advanced disease. Anyway, the reason why he was admitted primarily was for pain. On 11/09/2017 patient seen in follow-up on oncology floor. He is resting in bed , he states his left-sided chest and shoulder pain are a bit better controlled today. Nursing reports patient is not asking for pain medication consistently, and is in considerable amount of pain with repositioning and moving around in bed. He was reminded to request pain medication before it gets out of hand, he can participate with activities of daily living. He denies any dyspnea, denies any chest pain. He remains on 2-3 L per nasal cannula with O2 sat at 99%. He is afebrile, vital signs are stable. Appetite is poor, registered dietitian was consulted. His 2 daughters are at the bedside, were updated on patient's condition. Dr. Rojas spoke to his daughter Dyana yesterday on the phone regarding the plan of care for Mr. Carpenter. The patient himself did refuse any chemoradiation during his last admission for his squamous cell lung cancer, however this admission he is undecided whether or not to proceed with it. He realizes he is very weak and debilitated, however he wants to hear the input of the radiation oncologist as far as his treatment options this time. He was seen by medical oncology in consultation who is planning to proceed with CT of abdomen and pelvis for restaging purposes. Today's labs were reviewed, WBCs 11.0, hemoglobin is 12.8, electrolytes are within normal limits, BUN is 8, creatinine is 0.55. Objective - Vital Signs Vital signs: Vital Signs Temp 97.4 F L 11/09/17 07:00 Pulse 78 11/09/17 11:56 Resp 16 11/09/17 09:50 BP 112/60 11/09/17 07:00 Pulse Ox 99 11/09/17 07:00 Intake & Output 11/08/17 11/09/17 11/09/17 18:59 06:59 18:59 Intake Total 1560 Output Total 200 Balance -200 1560 Weight 44.452 kg Intake: Intake, IV Titration 1200 Amount Sodium Chloride 0.9% 1, 1200 000 ml @ 125 mls/hr IV . Q8H ARNOLDO Rx#:[id number] Oral 360 Output: Urine 200 Other: Voiding Method Urinal Urinal # Voids 6 - Exam No acute distress, oriented 3. Appears very weak and very cachectic as well as being very thin elderly -[place] male HEENT examination is grossly unremarkable. Mucous membranes are moist. No oral lesions. Neck supple. Full range of motion. No adenopathy thyromegaly or neck vein distention. Cardiovascular examination reveals regular rhythm rate. S1-S2 normal. No S3 or S4. No discernible murmur noted. Lungs reveal a few scattered rhonchi. Breath sounds are equal bilaterally. No wheezes or crackles noted. Abdomen soft bowel sounds are heard. No masses or tenderness. Extremities are intact. No cyanosis clubbing or edema. Skin is without rash or lesion. Neurologic examination is brief but nonfocal. - Labs CBC & Chem 7: 11/09/17 07:39 11/09/17 07:39 Labs: Abnormal Lab Results - Last 24 Hours (Table) 11/08/17 11/08/17 11/08/17 Range/Units 16:31 20:16 20:22 WBC (3.8-10.6) k/uL RBC (4.30-5.90) m/uL Hgb (13.0-17.5) gm/dL Hct (39.0-53.0) % Neutrophils # (1.3-7.7) k/uL BUN (9-20) mg/dL Creatinine (0.66-1.25) mg/dL POC Glucose (mg/dL) 173 H 119 H (75-99) mg/dL Calcium (8.4-10.2) mg/dL Magnesium (1.6-2.3) mg/dL Lactate Dehydrogenase (313-618) U/L Total Creatine Kinase 21 L (55-170) U/L 11/08/17 11/09/17 11/09/17 Range/Units 20:22 07:39 07:39 WBC 11.0 H (3.8-10.6) k/uL RBC 4.02 L (4.30-5.90) m/uL Hgb 12.8 L (13.0-17.5) gm/dL Hct 38.0 L (39.0-53.0) % Neutrophils # 8.9 H (1.3-7.7) k/uL BUN 8 L (9-20) mg/dL Creatinine 0.55 L (0.66-1.25) mg/dL POC Glucose (mg/dL) (75-99) mg/dL Calcium 12.2 H (8.4-10.2) mg/dL Magnesium 1.5 L (1.6-2.3) mg/dL Lactate Dehydrogenase 671 H (313-618) U/L Total Creatine Kinase (55-170) U/L 11/09/17 Range/Units 12:24 WBC (3.8-10.6) k/uL RBC (4.30-5.90) m/uL Hgb (13.0-17.5) gm/dL Hct (39.0-53.0) % Neutrophils # (1.3-7.7) k/uL BUN (9-20) mg/dL Creatinine (0.66-1.25) mg/dL POC Glucose (mg/dL) 150 H (75-99) mg/dL Calcium (8.4-10.2) mg/dL Magnesium (1.6-2.3) mg/dL Lactate Dehydrogenase (313-618) U/L Total Creatine Kinase (55-170) U/L Assessment and Plan Plan: Assessment: Stage IV non-small cell lung cancer, 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 Suspected COPD Acute on chronic pain History of hepatitis C CAD Angina. Previous myocardial infarction History of stent placement History of pneumonia Plan: Medical oncology consultation note was noted. Patient will proceed with CT of abdomen and pelvis for restaging purposes. He remains very weak and debilitated , poor appetite, he has lost significant amount of weight. He was reminded to request pain medication before any activities of daily living. Patient did make himself a DO NOT RESUSCITATE yesterday, however in terms of proceeding with treatment for his squamous cell lung cancer patient is undecided. He is expected to be seen by the radiation oncologist today. His daughters are at the bedside. They were updated on the patient's condition I performed a history & physical examination of the patient and discussed their management with my nurse practitioner, Keena Coyle. I reviewed the nurse practitioner's note and agree with the documented findings and plan of care. Lung sounds are positive for diminished lung sounds, with a few rhonchi. The findings and the impression was discussed with the patient. I attest to the documentation by the nurse practitioner. Time with Patient: Less than 30
--- NOTE | 2017-11-09 15:59 | CONS ---
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 HISTORY OF PRESENT ILLNESS: Mr. Carpenter is a 67-year-old male patient who was seen as initial consultation in August of 2017 regarding a large malignant mass originating from the left upper lobe, biopsy- proven squamous cell carcinoma. The patient also had a staging workup which also showed a mass in the lung and lymph nodes in the left supraclavicular region. The staging PET-CT scan was performed on 08/27/2017. The recommendation at that time was for focused radiation therapy to the lung mass and concurrent chemotherapy. This information was relayed to the patient; however, the patient did not return for followup and was reluctant to have treatment at that time. The patient now has been admitted to [facility] regarding chest pain and increased shortness of breath as relates to his known lung lesion. A CT scan of the chest on 11/07/2017 re-demonstrated the large left upper lobe mass which has significantly increased in size when compared to prior imaging from August 2017. The mass now measures 10 cm in greatest dimension with destruction of the upper thoracic vertebra on the left side. The mass also extends posteriorly into the subcutaneous tissues. There was no evidence of pulmonary embolism. During this admission the patient is receiving best supportive care, including pain management as well. The patient was not interested in chemotherapy or radiation therapy at his initial presentation and at the current time, based on further questioning on today's visit. PAST MEDICAL HISTORY: As per HPI. 1. Coronary artery disease. 2. COPD. 3. Hypertension. 4. History of myocardial infarction. 5. Pneumonia. 6. Hepatitis C serology. PAST SURGICAL HISTORY: Heart catheterization. MEDICATIONS: 1. Acetaminophen. 2. Albuterol. 3. Ipratropium. 4. Aspirin. 5. Atorvastatin. 6. Enoxaparin. 7. Insulin. 8. Iopamidol. 9. Levothyroxine. 10.Lisinopril. 11.Metoprolol. 12.Morphine sulfate. 13.Naloxone. 14.Ondansetron (Zofran). 15.Pantoprazole. REVIEW OF SYSTEMS: CONSTITUTIONAL: Fatigue, decreased appetite, weight loss. HEENT: Negative for odynophagia, dysphagia, neck masses. RESPIRATORY: As per HPI. CARDIOVASCULAR: As per HPI. GASTROINTESTINAL: Negative for hematemesis, incontinence, diarrhea. GENITOURINARY: Negative for incontinence, hematuria, obstructive uropathy. NEUROLOGIC: Negative for seizure activity, headaches, extremity weakness, loss of consciousness. ASSESSMENT: This is a 67-year-old male patient with squamous cell carcinoma originating from the left upper lobe of the lung causing destruction of adjacent upper thoracic vertebral body and rib. Patient was initially seen in consultation in August of 2017 regarding treatment for his locally advanced lung cancer. The patient was not interested in treatment at that time. He now presents with associated increased shortness of breath and chest pain. The CT imaging shows further increase in the lung mass with further destruction of thoracic vertebrae. Patient is receiving best supportive care. In addition, patient expresses no interest in any therapies at this time, including radiation and chemotherapy. RECOMMENDATION: I had a lengthy discussion with the patient and his duaghters regarding his current diagnosis and progression of his lung malignancy. I discussed palliative treatment, particularly involving palliative radiation therapy. The patient is declining radiation therapy at this time. He is interested in supportive care with pain management, however. I recommended that if the patient changes his mind in the near future, palliative radiation therapy can be instituted. If patient is not interested in any palliative treatment, then hospice care would be appropriate at this time. MMODL / IJN: [id number] / ALEJANDRA
[2017-11-09 17:16] LABS: Glucose,Whole Blood 100 mg/dL (75-99)
--- NOTE | 2017-11-09 17:23 | P.PN ---
Subjective Progress Note Date: 11/09/17 Principal diagnosis: Progressive Lung Cancer Mr. Carpenter seen in hospital this morning, he is sitting up eating breakfast. He refuses pain meds even though he does have pain. He stated he doesnt like that it makes him sleepy Objective - Vital Signs Vital signs: Vital Signs Temp 97.4 F L 11/09/17 07:00 Pulse 82 11/09/17 16:12 Resp 16 11/09/17 09:50 BP 130/78 11/09/17 16:12 Pulse Ox 95 11/09/17 16:12 Intake & Output 11/08/17 11/09/17 11/09/17 18:59 06:59 18:59 Intake Total 1560 Output Total 200 Balance -200 1560 Weight 44.452 kg Intake: Intake, IV Titration 1200 Amount Sodium Chloride 0.9% 1, 1200 000 ml @ 150 mls/hr IV . Q6H40M [facility] Rx#:[id number] Oral 360 Output: Urine 200 Other: Voiding Method Urinal Urinal # Voids 6 2 - Constitutional General appearance: Present: no acute distress, thin - EENT Eyes: Present: edentulous, poor dentition ENT: Present: hard of hearing, NA/AT, normal oropharynx - Neck Details: Supple, Trachea midline - Respiratory Respiratory: bilateral: diminished (Throughout), wheezing (Expiratory) - Cardiovascular Rhythm: regular Heart sounds: normal: S1, S2 - Gastrointestinal General gastrointestinal: Present: soft, tenderness - Integumentary Integumentary: Present: normal - Neurologic Neurologic: Present: CNII-XII intact - Musculoskeletal Musculoskeletal: Present: generalized weakness - Psychiatric Psychiatric: Present: A&O x's 3, appropriate affect, intact judgment & insight - Labs CBC & Chem 7: 11/09/17 07:39 11/09/17 07:39 Labs: Abnormal Lab Results - Last 24 Hours (Table) 11/08/17 11/08/17 11/08/17 Range/Units 20:16 20:22 20:22 WBC (3.8-10.6) k/uL RBC (4.30-5.90) m/uL Hgb (13.0-17.5) gm/dL Hct (39.0-53.0) % Neutrophils # (1.3-7.7) k/uL BUN (9-20) mg/dL Creatinine (0.66-1.25) mg/dL POC Glucose (mg/dL) 119 H (75-99) mg/dL Calcium (8.4-10.2) mg/dL Magnesium (1.6-2.3) mg/dL Lactate Dehydrogenase 671 H (313-618) U/L Total Creatine Kinase 21 L (55-170) U/L 11/09/17 11/09/17 11/09/17 Range/Units 07:39 07:39 12:24 WBC 11.0 H (3.8-10.6) k/uL RBC 4.02 L (4.30-5.90) m/uL Hgb 12.8 L (13.0-17.5) gm/dL Hct 38.0 L (39.0-53.0) % Neutrophils # 8.9 H (1.3-7.7) k/uL BUN 8 L (9-20) mg/dL Creatinine 0.55 L (0.66-1.25) mg/dL POC Glucose (mg/dL) 150 H (75-99) mg/dL Calcium 12.2 H (8.4-10.2) mg/dL Magnesium 1.5 L (1.6-2.3) mg/dL Lactate Dehydrogenase (313-618) U/L Total Creatine Kinase (55-170) U/L 11/09/17 Range/Units 17:14 WBC (3.8-10.6) k/uL RBC (4.30-5.90) m/uL Hgb (13.0-17.5) gm/dL Hct (39.0-53.0) % Neutrophils # (1.3-7.7) k/uL BUN (9-20) mg/dL Creatinine (0.66-1.25) mg/dL POC Glucose (mg/dL) 100 H (75-99) mg/dL Calcium (8.4-10.2) mg/dL Magnesium (1.6-2.3) mg/dL Lactate Dehydrogenase (313-618) U/L Total Creatine Kinase (55-170) U/L Assessment and Plan (1) Chest pain Current Visit: Yes Status: Acute Code(s): R07.9 - CHEST PAIN, UNSPECIFIED SNOMED Code(s): 24417175 (2) Dyspnea Current Visit: Yes Status: Acute Code(s): R06.00 - DYSPNEA, UNSPECIFIED SNOMED Code(s): 152457942 (3) Intractable pain Current Visit: Yes Status: Acute Code(s): R52 - PAIN, UNSPECIFIED SNOMED Code(s): 32669607 (4) Lung cancer Current Visit: Yes Status: Acute Code(s): C34.90 - MALIGNANT NEOPLASM OF UNSP PART OF UNSP BRONCHUS OR LUNG SNOMED Code(s): 916828931 (5) Lung mass Current Visit: Yes Status: Acute Code(s): R91.8 - OTHER NONSPECIFIC ABNORMAL FINDING OF LUNG FIELD SNOMED Code(s): 729853168 (6) Squamous cell carcinoma of lung, stage III Current Visit: Yes Status: Acute Code(s): C34.90 - MALIGNANT NEOPLASM OF UNSP PART OF UNSP BRONCHUS OR LUNG SNOMED Code(s): 962760805 (7) COPD (chronic obstructive pulmonary disease) Current Visit: No Status: Acute Code(s): J44.9 - CHRONIC OBSTRUCTIVE PULMONARY DISEASE, UNSPECIFIED SNOMED Code(s): 19838812 (8) Cachexia Current Visit: No Status: Acute Code(s): R64 - CACHEXIA SNOMED Code(s): 224655922 Plan: Assessment and Recs: 1. Squamous Cell Lung Cancer - Originally Diagnosed as locally advanced, although was not adherent with followup, now appears progressive with bony destruction - CT scans Abdomen and Pelvis restaging - COnsult Dr. Gutierrez Radiation Oncology, Discussed case with Dr. Mercedes this AM - Social WOrk Consult to assist with transportation issues and home issues to allow better adherence to follow-up if treatment is recommended - He will need treatment, if even as a palliative measure. Will need assistance arranging transportation and ability to remain adherent. 2. Pain related to progressive malignancy: - Continue supportive care pain management. Physician Attestation: I have completed the complete history and physical of this patient and discussed and agree with above dictation by Tracie Smith NP. Documented as a scribe.
--- NOTE | 2017-11-09 18:39 | P.PN ---
Subjective Progress Note Date: 11/09/17 Principal diagnosis: Patient seen and examined in follow-up for hypercalcemia and advanced stage IV lung cancer Patient seen and examined today, family at bedside, patient clearly reported that he understands his disease process and continues to refuse chemotherapy and radiation. He does want to be in peace and comfortable and agrees with hospice evaluation. He reports pain in his shoulder and back but refuses pain medications because they make him sleepy. Otherwise denies any coughing headache or trouble breathing at this time and he feels comfortable Objective - Vital Signs Vital signs: Vital Signs Temp 97.4 F L 11/09/17 07:00 Pulse 88 11/09/17 09:50 Resp 16 11/09/17 09:50 BP 112/60 11/09/17 07:00 Pulse Ox 99 11/09/17 07:00 Intake & Output 11/08/17 11/09/17 11/09/17 18:59 06:59 18:59 Intake Total 1560 Output Total 200 Balance -200 1560 Weight 44.452 kg Intake: Intake, IV Titration 1200 Amount Sodium Chloride 0.9% 1, 1200 000 ml @ 125 mls/hr IV . Q8H [facility] Rx#:[id number] Oral 360 Output: Urine 200 Other: Voiding Method Urinal # Voids 6 - Exam Constitutional: vital signs stable, Not in acute distress, pleasant, conversant, cachectic Lungs: Good breath sounds bilaterally Cardiovascular: Regular rate and rhythm, no murmurs, no gallops, no rubs, no peripheral edema Gastrointestinal: Soft, no tenderness to palpation, no palpable hepatosplenomegally, bowel sounds positive, no abdominal wall hernias Extremities: No digital cyanosis , peripheral pulses palpable and equal over bilateral radial arteries and dorsalis pedis artery, no calf muscle tenderness Psych: Alert, oriented to place, person and time, appropriate affect, intact judgment , understands his disease process - Labs CBC & Chem 7: 11/09/17 07:39 11/09/17 07:39 Labs: Abnormal Lab Results - Last 24 Hours (Table) 11/08/17 11/08/17 11/08/17 Range/Units 08:20 14:38 16:31 WBC 11.8 H (3.8-10.6) k/uL RBC 3.85 L (4.30-5.90) m/uL Hgb 12.1 L (13.0-17.5) gm/dL Hct 36.7 L (39.0-53.0) % Neutrophils # 9.4 H (1.3-7.7) k/uL BUN (9-20) mg/dL Creatinine (0.66-1.25) mg/dL POC Glucose (mg/dL) 173 H (75-99) mg/dL Calcium (8.4-10.2) mg/dL Magnesium (1.6-2.3) mg/dL Lactate Dehydrogenase (313-618) U/L Total Creatine Kinase 31 L (55-170) U/L 11/08/17 11/08/17 11/08/17 Range/Units 20:16 20:22 20:22 WBC (3.8-10.6) k/uL RBC (4.30-5.90) m/uL Hgb (13.0-17.5) gm/dL Hct (39.0-53.0) % Neutrophils # (1.3-7.7) k/uL BUN (9-20) mg/dL Creatinine (0.66-1.25) mg/dL POC Glucose (mg/dL) 119 H (75-99) mg/dL Calcium (8.4-10.2) mg/dL Magnesium (1.6-2.3) mg/dL Lactate Dehydrogenase 671 H (313-618) U/L Total Creatine Kinase 21 L (55-170) U/L 11/09/17 11/09/17 Range/Units 07:39 07:39 WBC 11.0 H (3.8-10.6) k/uL RBC 4.02 L (4.30-5.90) m/uL Hgb 12.8 L (13.0-17.5) gm/dL Hct 38.0 L (39.0-53.0) % Neutrophils # 8.9 H (1.3-7.7) k/uL BUN 8 L (9-20) mg/dL Creatinine 0.55 L (0.66-1.25) mg/dL POC Glucose (mg/dL) (75-99) mg/dL Calcium 12.2 H (8.4-10.2) mg/dL Magnesium 1.5 L (1.6-2.3) mg/dL Lactate Dehydrogenase (313-618) U/L Total Creatine Kinase (55-170) U/L Assessment and Plan Assessment: 67-year-old male with history of stage IV squamous cell cancer of the lungs, presents due to left shoulder and back pain from invasive cancer. Patient upon diagnoses refused chemotherapy and radiation therapy he continues to refuse these options. At this time he also refuses pain medication as they make sleepy. He elected to be evaluated by hospice discuss his options. He was also found to have hypercalcemia during this hospitalization and currently receiving aggressive IV fluid hydration for natriuresis. 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
[2017-11-09 20:03] LABS: Glucose,Whole Blood 103 mg/dL (75-99)
[2017-11-09] MEDS: ATORVASTATIN 10 MG TAB PO SCH ×2 (20:31→21:00)
[2017-11-09] MEDS: KETOROLAC 30 MG/ML 1 ML VIAL IVP SCH (23:27)
[2017-11-10] MEDS: SODIUM CHLORIDE 0.9% 1,000 ML IV SCH (03:50)
[2017-11-10] MEDS: LEVOTHYROXINE 50 MCG TAB PO SCH (06:11)
[2017-11-10] MEDS: KETOROLAC 30 MG/ML 1 ML VIAL IVP SCH ×2 (06:12→11:29)
[2017-11-10 06:57] LABS: Basophils % (A) 0 %; Eosinophils # (A) 0.1 k/uL (0-0.7); Eosinophils % (A) 1 %; HCT 42.1 % (39.0-53.0); HGB 14.2 gm/dL (13.0-17.5); Lymphocytes # (A) 1.6 k/uL (1.0-4.8); Lymphocytes % (A) 13 %; MCHC 33.7 g/dL (31.0-37.0); MCV 94.8 fL (80.0-100.0); Mean Platelet Volume 6.7; Monocytes # (A) 0.4 k/uL (0-1.0); Monocytes % (A) 3 %; Neutrophils # (A) 10.1 k/uL (1.3-7.7); Neutrophils % (A) 82 %; Platelet Count 297 k/uL (150-450); RBC 4.44 m/uL (4.30-5.90); RDW 13.6 % (11.5-15.5); WBC 12.3 k/uL (3.8-10.6)
[2017-11-10 06:58] LABS: Glucose,Whole Blood 100 mg/dL (75-99)
[2017-11-10 07:16] LABS: Anion Gap 8 mmol/L; Blood Urea Nitrogen 8 mg/dL (9-20); Calcium 12.4 mg/dL (8.4-10.2); Carbon Dioxide 27 mmol/L (22-30); Chloride 106 mmol/L (98-107); Glucose 102 mg/dL (74-99); Magnesium 1.3 mg/dL (1.6-2.3); Potassium 3.7 mmol/L (3.5-5.1); Sodium 141 mmol/L (137-145)
[2017-11-10] MEDS ORDERED: PANTOPRAZOLE 40 MG TABLET PO SCH (07:30)
[2017-11-10 07:41] VITALS: BP 137/73; PULSE 92; RESP 19; TEMP 97.5
[2017-11-10] MEDS: IPRATROPIUM-ALBUTEROL 3 ML NEB INHALATION SCH (08:16)
[2017-11-10] MEDS: ENOXAPARIN 40 MG/0.4 ML SYRINGE SQ SCH (09:15)
[2017-11-10] MEDS: ASPIRIN 81 MG PO SCH (09:15)
[2017-11-10] MEDS: METOPROLOL TARTRATE 25 MG TAB PO SCH (09:16)
[2017-11-10] MEDS: LISINOPRIL 20 MG TAB PO SCH (09:16)
[2017-11-10] MEDS: INSULIN ASPART 100 UNIT/ML 1 ML 10 ML VIAL SQ SCH ×2 (09:21→13:04)
[2017-11-10 11:18] LABS: Glucose,Whole Blood 122 mg/dL (75-99)
--- NOTE | 2017-11-10 12:02 | P.DS ---
Providers Date of admission: 11/08/17 01:38 Expected date of discharge: 11/10/17 Attending physician: Jesus Simpson MD Consults: 11/08/17 01:40 Consult Physician Routine Consulting Provider: Consuelo Vail Consult Reason/Comments: lung cancer Do you want consulting provider notified?: Yes Consult Physician Routine Consulting Provider: Ortiz Millan Consult Reason/Comments: lung cancer Do you want consulting provider notified?: Yes 11/08/17 19:18 Consult Physician Routine Consulting Provider: Aston Gutierrez Consult Reason/Comments: Destructive lung mass Do you want consulting provider notified?: Yes Primary care physician: Stated None Hospital Course: Final diagnoses at discharge Squamous cell lung cancer with bony destruction 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 Patient upon diagnoses with locally advanced cancer few months ago failed to adhere to follow up and management plan, and he refused chemotherapy and radiation at that time, now presenting with advanced cancer associated with bony destruction, patient was evaluated by oncology and [facility] services where we be suggested to offer him palliative therapy approach, also involving restaging of his cancer. However after further discussion between the patient and his family they decided to go with hospice. Patient mental status is intact he is alert and oriented to time, place, person, and situation. He understands his disease process. And he verbalizes understanding that by offering him palliative approach it can help with symptom control however he continued to decline that option and opted for hospice. Patient also reports pain in his shoulder and back however he was refusing any opiates because they make him feel sleepy. During this hospital course patient had hypercalcemia which is thought to be due to paraneoplastic syndrome from squamous cell cancer , was treated with aggressive IV fluid hydration to achieve natriuresis . Other electrolytes were followed and replaced as needed. However today 2017 patient made made up his mind and decided to go with hospice care, prescriptions were provided and arrangements were made for the patient go home [facility] hospice service. I met with the patient and his family today again all questions were answered. Patient was discharged home with hospice care. CODE STATUS was also discussed with patient and his family patient and elected in no CODE STATUS DNR/DNI Patient was seen and examined on day of discharge, he is tolerating by mouth intake is able to go to the bathroom on his own he likes to be dependent on himself. Patient was advised to keep safe and asked for help to get transported to the bathroom and back to avoid risk of falling. Patient will follow-up with Dr. Millan as an outpatient to help with his hospice care, patient going home with [facility] care Patient Condition at Discharge: Stable Plan - Discharge Summary Discharge Rx Participant: No New Discharge Prescriptions: New Levothyroxine Sodium [Synthroid] 50 mcg PO 0630 #30 tab Lisinopril [Zestril] 20 mg PO DAILY #30 tab Metoprolol Tartrate [Lopressor] 25 mg PO BID #30 tab Pantoprazole [Protonix] 40 mg PO AC-BRKFST #30 tablet. Continue Nitroglycerin Sl Tabs [Nitrostat] 0.4 mg SUBLINGUAL Q5M PRN PRN Reason: Chest Pain Discontinued Melatonin 5 - 10 mg PO HS Discharge Medication List Nitroglycerin Sl Tabs [Nitrostat] 0.4 mg SUBLINGUAL Q5M PRN 11/08/17 [History] Levothyroxine Sodium [Synthroid] 50 mcg PO 0630 #30 tab 11/10/17 [Rx] Lisinopril [Zestril] 20 mg PO DAILY #30 tab 11/10/17 [Rx] Metoprolol Tartrate [Lopressor] 25 mg PO BID #30 tab 11/10/17 [Rx] Pantoprazole [Protonix] 40 mg PO AC-BRKFST #30 tablet. 11/10/17 [Rx] Follow up Appointment(s)/Referral(s): Ortiz Millan MD [STAFF PHYSICIAN] - 1 Week Patient Instructions/Handouts: Hospice Care (GEN) Activity/Diet/Wound Care/Special Instructions: activity and diet as tolerated Care Plan Goals (MU): discharge home with [facility] hospice stage four metastatic sequamous cell cancer of the lung Discharge Disposition: HOME WITH HOSPICE
--- NOTE | 2017-11-10 12:18 | P.PN ---
Subjective Progress Note Date: 11/10/17 Principal diagnosis: Progressive Lung Cancer Mr. Carpenter seen in hospital this morning,I spoke to his daughter and to Mr. Carpenter and they are planning to be discharged home with hospice care. Objective - Vital Signs Vital signs: Vital Signs Temp 97.5 F L 11/10/17 07:00 Pulse 92 11/10/17 07:00 Resp 19 11/10/17 07:00 BP 137/73 11/10/17 07:00 Pulse Ox 98 11/10/17 07:00 Intake & Output 11/09/17 11/10/17 11/10/17 18:59 06:59 18:59 Output Total 100 Balance -100 Weight 44.452 kg Output: Urine 100 Other: Voiding Method Urinal Urinal Urinal Diaper Diaper Incontinent Incontinent # Voids 2 1 1 - Constitutional General appearance: Present: cooperative, no acute distress - EENT Eyes: Present: edentulous, poor dentition ENT: Present: NA/AT, normal oropharynx - Neck Details: Supple, Trachea midline Neck: Present: normal ROM - Respiratory Respiratory: bilateral: diminished (Throughout) - Cardiovascular Rhythm: regular - Gastrointestinal General gastrointestinal: Present: normal bowel sounds, soft - Neurologic Neurologic: Present: CNII-XII intact - Musculoskeletal Musculoskeletal: Present: generalized weakness - Psychiatric Psychiatric: Present: A&O x's 3, appropriate affect - Labs CBC & Chem 7: 11/10/17 06:32 11/10/17 06:32 Labs: Abnormal Lab Results - Last 24 Hours (Table) 11/09/17 11/09/17 11/09/17 Range/Units 12:24 17:14 20:01 WBC (3.8-10.6) k/uL Neutrophils # (1.3-7.7) k/uL BUN (9-20) mg/dL Creatinine (0.66-1.25) mg/dL Glucose (74-99) mg/dL POC Glucose (mg/dL) 150 H 100 H 103 H (75-99) mg/dL Calcium (8.4-10.2) mg/dL Magnesium (1.6-2.3) mg/dL 11/10/17 11/10/17 11/10/17 Range/Units 06:32 06:32 06:55 WBC 12.3 H (3.8-10.6) k/uL Neutrophils # 10.1 H (1.3-7.7) k/uL BUN 8 L (9-20) mg/dL Creatinine 0.58 L (0.66-1.25) mg/dL Glucose 102 H (74-99) mg/dL POC Glucose (mg/dL) 100 H (75-99) mg/dL Calcium 12.4 H (8.4-10.2) mg/dL Magnesium 1.3 L (1.6-2.3) mg/dL 11/10/17 Range/Units 11:16 WBC (3.8-10.6) k/uL Neutrophils # (1.3-7.7) k/uL BUN (9-20) mg/dL Creatinine (0.66-1.25) mg/dL Glucose (74-99) mg/dL POC Glucose (mg/dL) 122 H (75-99) mg/dL Calcium (8.4-10.2) mg/dL Magnesium (1.6-2.3) mg/dL Assessment and Plan (1) Chest pain Current Visit: Yes Status: Acute Code(s): R07.9 - CHEST PAIN, UNSPECIFIED SNOMED Code(s): 12228312 (2) Dyspnea Current Visit: Yes Status: Acute Code(s): R06.00 - DYSPNEA, UNSPECIFIED SNOMED Code(s): 896259714 (3) Intractable pain Current Visit: Yes Status: Acute Code(s): R52 - PAIN, UNSPECIFIED SNOMED Code(s): 91151327 (4) Lung cancer Current Visit: Yes Status: Acute Code(s): C34.90 - MALIGNANT NEOPLASM OF UNSP PART OF UNSP BRONCHUS OR LUNG SNOMED Code(s): 174679263 (5) Lung mass Current Visit: Yes Status: Acute Code(s): R91.8 - OTHER NONSPECIFIC ABNORMAL FINDING OF LUNG FIELD SNOMED Code(s): 260619105 (6) Squamous cell carcinoma of lung, stage III Current Visit: Yes Status: Acute Code(s): C34.90 - MALIGNANT NEOPLASM OF UNSP PART OF UNSP BRONCHUS OR LUNG SNOMED Code(s): 366609817 (7) COPD (chronic obstructive pulmonary disease) Current Visit: No Status: Acute Code(s): J44.9 - CHRONIC OBSTRUCTIVE PULMONARY DISEASE, UNSPECIFIED SNOMED Code(s): 10233468 (8) Cachexia Current Visit: No Status: Acute Code(s): R64 - CACHEXIA SNOMED Code(s): 657997056 Plan: Assessment and Recs: 1. Squamous Cell Lung Cancer - Originally Diagnosed as locally advanced, although was not adherent with followup, now appears progressive with bony destruction 2. Pain related to progressive malignancy: - Continue supportive care pain management. 3. DISPO PLAN: - Spoke with Daughter Dyana and patient, answered questions and discussed prognosis as poor overall. Plan to discharge home with hospice care today or tomorrow. Patient and Daughter provided all palliative options prior to decision and comfort in the decsion of hospice care. Will assist with any measures after discharge to provide comfort measures. Physician Attestation: I have completed the complete history and physical of this patient and discussed and agree with above dictation by Tracie Smith NP. Documented as a scribe.
--- NOTE | 2017-11-10 14:28 | P.PN ---
Subjective Progress Note Date: 11/10/17 Principal diagnosis: Stage IV non-small cell lung cancer, squamous cell type This is a 67-year-old white male very cachectic and weak. Comes in complaining of left-sided chest and shoulder pain. Recently had a diagnosis of non-small cell lung cancer made. He had a biopsy done in August. Subsequent to that he had chest x-rays CAT scans and PET scans which showed metastatic disease. At that time, the patient refused all therapy. He refuses chemo and radiation. At that time he probably stage IIIa but now with metastases to the spine into the ribs, he is stage IV disease. Again the patient does not wish to have any therapy at this time. He scatted very poor appetite and significant weight loss. Lost about 50 pounds or so. I was able to talk to him about CODE STATUS. We talked to his daughter Dyana in [place]. The patient has made himself a no code. I think hospice consultation would be very appropriate. Initially, the nurse talk to him and initially he was a full code. I thought that was very unreasonable given his advanced disease. Anyway, the reason why he was admitted primarily was for pain. On 11/09/2017 patient seen in follow-up on oncology floor. He is resting in bed , he states his left-sided chest and shoulder pain are a bit better controlled today. Nursing reports patient is not asking for pain medication consistently, and is in considerable amount of pain with repositioning and moving around in bed. He was reminded to request pain medication before it gets out of hand, he can participate with activities of daily living. He denies any dyspnea, denies any chest pain. He remains on 2-3 L per nasal cannula with O2 sat at 99%. He is afebrile, vital signs are stable. Appetite is poor, registered dietitian was consulted. His 2 daughters are at the bedside, were updated on patient's condition. Dr. Rojas spoke to his daughter Dyana yesterday on the phone regarding the plan of care for Mr. Carpenter. The patient himself did refuse any chemoradiation during his last admission for his squamous cell lung cancer, however this admission he is undecided whether or not to proceed with it. He realizes he is very weak and debilitated, however he wants to hear the input of the radiation oncologist as far as his treatment options this time. He was seen by medical oncology in consultation who is planning to proceed with CT of abdomen and pelvis for restaging purposes. Today's labs were reviewed, WBCs 11.0, hemoglobin is 12.8, electrolytes are within normal limits, BUN is 8, creatinine is 0.55. On 11/10/2017 patient seen in follow-up on oncology floor. he remains very weak , he has been refusing pain medications stating he thought the pain medication with make him weaker and more sleepier. His daughter lives at the bedside. Patient was seen by medical oncology, who has offered palliative treatment for his stage IV squamous cell lung cancer. However after discussion with his family, it was decided to proceed with hospice care at home per patient's and family wishes. Patient is afebrile, on room air, respirations are even and nonlabored, remains weak. Appetite is poor. Patient is expected to be seen by the [facility] this afternoon, and discharged home in their care. Objective - Vital Signs Vital signs: Vital Signs Temp 97.5 F L 11/10/17 07:00 Pulse 92 11/10/17 12:07 Resp 19 11/10/17 07:00 BP 137/73 11/10/17 07:00 Pulse Ox 98 11/10/17 07:00 Intake & Output 11/09/17 11/10/17 11/10/17 18:59 06:59 18:59 Output Total 100 Balance -100 Weight 44.452 kg Output: Urine 100 Other: Voiding Method Urinal Urinal Toilet Diaper Urinal Incontinent Diaper Incontinent # Voids 2 1 1 - Exam No acute distress, oriented 3. Appears very weak and very cachectic as well as being very thin elderly -[place] male HEENT examination is grossly unremarkable. Mucous membranes are moist. No oral lesions. Neck supple. Full range of motion. No adenopathy thyromegaly or neck vein distention. Cardiovascular examination reveals regular rhythm rate. S1-S2 normal. No S3 or S4. No discernible murmur noted. Lungs reveal a few scattered rhonchi. Breath sounds are equal bilaterally. No wheezes or crackles noted. Abdomen soft bowel sounds are heard. No masses or tenderness. Extremities are intact. No cyanosis clubbing or edema. Skin is without rash or lesion. Neurologic examination is brief but nonfocal. - Labs CBC & Chem 7: 11/10/17 06:32 18 06:32 Labs: Abnormal Lab Results - Last 24 Hours (Table) 11/09/17 11/09/17 11/10/17 Range/Units 17:14 20:01 06:32 WBC 12.3 H (3.8-10.6) k/uL Neutrophils # 10.1 H (1.3-7.7) k/uL BUN (9-20) mg/dL Creatinine (0.66-1.25) mg/dL Glucose (74-99) mg/dL POC Glucose (mg/dL) 100 H 103 H (75-99) mg/dL Calcium (8.4-10.2) mg/dL Magnesium (1.6-2.3) mg/dL 11/10/17 11/10/17 11/10/17 Range/Units 06:32 06:55 11:16 WBC (3.8-10.6) k/uL Neutrophils # (1.3-7.7) k/uL BUN 8 L (9-20) mg/dL Creatinine 0.58 L (0.66-1.25) mg/dL Glucose 102 H (74-99) mg/dL POC Glucose (mg/dL) 100 H 122 H (75-99) mg/dL Calcium 12.4 H (8.4-10.2) mg/dL Magnesium 1.3 L (1.6-2.3) mg/dL Assessment and Plan Plan: Assessment: Stage IV non-small cell lung cancer, 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 Suspected COPD Acute on chronic pain History of hepatitis C CAD Angina. Previous myocardial infarction History of stent placement History of pneumonia Plan: The patient was offered palliative treatment for stage IV non-small cell lung cancer, but after the patient and the family have discussed goals of treatment, and have decided to proceed with hospice care at this time, they requested [facility], and will be discharged home in the care of this afternoon. No further recommendations from pulmonary standpoint at this time. I performed a history & physical examination of the patient and discussed their management with my nurse practitioner, Keena Coyle. I reviewed the nurse practitioner's note and agree with the documented findings and plan of care. Lung sounds are positive for diminished lung sounds, with a few rhonchi. The findings and the impression was discussed with the patient. I attest to the documentation by the nurse practitioner. Time with Patient: Less than 30
== END 2017-11-10 13:15 | disposition hospice, home (50) | DRG 180 ==
LOC: EC 21:22 → OBSVTOIN 11-08 01:38 → 3OBS 11-08 01:38 → 5ONC 11-08 10:04
PROVIDERS: ADMIT Family Medicine; ATTEND Family Medicine
DX: C34.12 Malignant neoplasm of upper lobe, left bronchus or lung (principal); E43 Unspecified severe protein-calorie malnutrition; C79.51 Secondary malignant neoplasm of bone; E86.0 Dehydration; E83.52 Hypercalcemia; E83.42 Hypomagnesemia; I11.9 Hypertensive heart disease without heart failure; J44.9 Chronic obstructive pulmonary disease, unspecified; R64 Cachexia; Z68.1 Body mass index [BMI] 19.9 or less, adult; E87.6 Hypokalemia; D72.829 Elevated white blood cell count, unspecified; E78.5 Hyperlipidemia, unspecified; G89.3 Neoplasm related pain (acute) (chronic); I25.119 Atherosclerotic heart disease of native coronary artery with unspecified angina pectoris; F17.210 Nicotine dependence, cigarettes, uncomplicated; I25.2 Old myocardial infarction; Z51.5 Encounter for palliative care; Z66 Do not resuscitate; Z79.01 Long term (current) use of anticoagulants; Z79.4 Long term (current) use of insulin; Z79.82 Long term (current) use of aspirin; Z79.899 Other long term (current) drug therapy; Z80.3 Family history of malignant neoplasm of breast; Z82.3 Family history of stroke; Z82.49 Family history of ischemic heart disease and other diseases of the circulatory system; Z87.01 Personal history of pneumonia (recurrent); Z91.19 Patient's noncompliance with other medical treatment and regimen; Z95.5 Presence of coronary angioplasty implant and graft; Y63.6 Underdosing and nonadministration of necessary drug, medicament or biological substance; Z59.6 Low income; B19.20 Unspecified viral hepatitis C without hepatic coma
CPT/HCPCS: 36415; 71275; 80048; 80053; 82550; 82553; 83036; 83615; 83735; 83880; 84443; 84484; 85025; 85379; 85610; 85730; 93005; 94640; 94760; 96361; 96365; 96366; 96375; 99285